=== PATIENT | female | born 1950 | race Caucasian/White ===

== ENCOUNTER 2020-02-22 17:52 | Emergency (ER) | payer OTHER ==
[~2020-02-22] VITALS: Ht 160 cm; Wt 70.3 kg
[2020-02-22] MEDS ORDERED: BLOOD PRESSURE PO (18:02)
[2020-02-22] MEDS ORDERED: TOPROL XL25 MG PO (18:02)
[2020-02-22] MEDS ORDERED: LEVO-T25 MCG PO (18:02)
[2020-02-22] MEDS ORDERED: VENTOLIN HFA 1818 GM INH (19:09)
[2020-02-22 19:23] VITALS: BP 175/105
== END 2020-02-22 19:24 | disposition home or self-care (01) ==
LOC: M.ERS 17:52
DX: U07.1 COVID-19 (principal); I10 Essential (primary) hypertension; Z88.1 Allergy status to other antibiotic agents